=== PATIENT | male | born 1970 | race Asian ===

== ENCOUNTER 2018-08-14 17:48 | Emergency (ER) | payer OTHER, MEDICAID, SELFPAY ==
[2018-08-14 17:53] VITALS: BP 137/82; PULSE 95; RESP 18; TEMP 36.2; O2SAT 99; BMI 23.7
--- NOTE | 2018-08-14 18:23 | ED_ITS ---
HPI - Wound/Laceration <OLIVER Barney - Last Filed: 08/14/18 22:11> General Chief Complaint: Wound/Laceration Stated Complaint: Cut Middle Finger Time Seen by Provider: 08/14/18 17:57 Source: patient Mode of arrival: ambulatory Limitations: no limitations History of Present Illness HPI narrative: 48-year-old male with history of ADHD is a nonsmoker here for complaint of having at laceration to his left index finger. He states that he was using a kitchen knife cut not taking when he accidentally cut his left index finger. This was approximately 1 hr ago. He used Super glue to close the laceration. He denies any other injuries. He states his last tetanus was approximately 2 years ago. Bleeding is controlled at time of exam. He denies any other concerns. Related Data Previous Rx's Medication Instructions Recorded aripiprazole 10 mg tablet 10 mg PO DAILY #90 tab 08/03/18 dextroamphetamine-amphetamine 20 20 mg PO DAILY #30 tab 08/03/18 mg tablet dextroamphetamine-amphetamine ER 40 mg PO DAILY #60 cap 08/03/18 20 mg 24hr capsule,extend release Allergies Allergy/AdvReac Type Severity Reaction Status Date / Time Penicillins Allergy Mild hives Verified 08/14/18 17:56 Review of Systems <OLIVER Barney - Last Filed: 08/14/18 22:11> Constitutional Denies chills, Denies fever(s), Denies lethargy and Denies weakness Eyes Denies change in vision, Denies eye discharge, Denies irritation and Denies loss of vision ENT Ears, Nose, Mouth, and Throat: Denies change in voice, Denies neck pain and Denies sore throat Cardiovascular Denies chest pain, Denies irregular heart rhythm, Denies lightheadedness, Denies palpitations, Denies dyspnea, Denies dyspnea on exertion and Denies orthopnea Respiratory Denies cough, Denies dyspnea, Denies dyspnea on exertion and Denies wheezing Gastrointestinal Gastrointestinal: Denies abdominal pain, Denies change in bowel habits, Denies diarrhea, Denies nausea and Denies vomiting Genitourinary Denies hematuria, Denies flank pain, Denies urinary incontinence and Denies urinary urgency Musculoskeletal Denies neck pain Comments: Laceration left index finger Integumentary/Breasts Denies pruritus, Denies erythema, Denies rash and Denies wounds Neurologic Denies confusion, Denies loss of vision and Denies weakness Psychiatric Denies anxiety, Denies confusion, Denies depression, Denies homicidal ideation and Denies suicidal ideation Endocrine Denies palpitations Hematologic/Lymphatic Denies easy bruising Allergic/Immunologic Denies wheezing Exam <OLIVER Barney - Last Filed: 08/14/18 22:11> Initial Vital Signs Initial Vital Signs: Vital Signs Temperature 97.2 F L 08/14/18 17:53 Pulse Rate 95 H 08/14/18 17:53 Respiratory Rate 18 08/14/18 17:53 Blood Pressure 137/82 08/14/18 17:53 Pulse Oximetry 99 08/14/18 17:53 Const General: cooperative and well developed Nutritional Appearance: well nourished Orientation: alert, awake, oriented x3 and not confused HENMT Mouth: oral mucosae normal and moist mucous membranes Eyes General: appearance normal, both eyes and all related structures Eyelids: eyelids normal Conjunctivae: conjunctivae normal Sclera: sclerae normal Pupils: PERRL EOM: EOM intact bilaterally Resp Effort & Inspection: normal respiratory effort, able to speak in complete sentences, no respiratory distress and no use of accessory muscles Auscultation: clear to auscultation bilaterally, no rales, no rhonchi and no wheezes Cardio Rate: regular rate Rhythm: regular rhythm Heart Sounds: no click, no gallops, no murmurs and no rubs Pulses: normal peripheral pulses Skin General: no rashes or lesions noted, No jaundice and No petechiae Neuro General: alert, oriented x3, gait normal and no focal motor deficits Speech: speech normal Extrem Other: 1 cm laceration to the lateral distal edge of the left index finger. No bleeding at this time. Wound was closed with Super glue prior to arrival. Distal sensation is intact. Distal cap refill less than 2 sec. Full range of motion. <Hannah Banda DO - Last Filed: 08/14/18 23:29> Initial Vital Signs Initial Vital Signs: Vital Signs Temperature 97.2 F L 08/14/18 17:53 Pulse Rate 95 H 08/14/18 17:53 Respiratory Rate 18 08/14/18 17:53 Blood Pressure 137/82 08/14/18 17:53 Pulse Oximetry 99 08/14/18 17:53 Course <OLIVER Barney - Last Filed: 08/14/18 22:11> Vital Signs - 8 hr 08/14/18 17:53 08/14/18 18:45 Temperature 97.2 F L Pulse Rate 95 H 78 Respiratory Rate 18 16 Blood Pressure 137/82 135/91 H Pulse Oximetry 99 100 <Hannah Banda - Last Filed: 08/14/18 23:29> Vital Signs - 8 hr 08/14/18 17:53 08/14/18 18:45 Temperature 97.2 F L Pulse Rate 95 H 78 Respiratory Rate 18 16 Blood Pressure 137/82 135/91 H Pulse Oximetry 99 100 MDM - Wound/Laceration <OLIVER Barney - Last Filed: 08/14/18 22:11> MDM Narrative Medical decision making narrative: Supra glue appears to have closed the wound no bleeding on exam. A patient desires to leave at this time and stick with the Super glue. Offered to suture the wound after cleaning the Super glue off patient decided he would rather not. Informed patient that he is at increased risk of infection due to ceiling in any contaminants. Patient states he understood. Tetanus is up-to-date. Follow up with primary care provider. Over -the-counter Tylenol or Motrin as needed for any discomfort. For any worsening symptoms return to the emergency room. Finger is splinted to give a protection to the incision site. Discharge Plan Departure Patient Disposition: Home Clinical Impression: Laceration of left index finger Discharge Date/Time: 08/14/18 18:45 Interventions: ED Discharge Assessment Last Done: 08/14/18 18:45 Instructions: DI for Minor Laceration Activity Restrictions/Additional Instructions: Due to super glue application wound was not closed with sutures. Wound is at increased risk for infection due to possibility of sealing in contaminants with the Super glue. Finger is splinted to help protect the wound area. Use as directed. Use [id number] Tylenol as needed for discomfort. Follow up with her primary care provider. Return emergency room for any worsening symptoms. Prescriptions: No Action aripiprazole [Abilify] 10 mg tablet 10 mg PO DAILY Qty: 90 RF: 2 dextroamphetamine-amphetamine 20 mg capsule,extended release 24hr 40 mg PO DAILY Qty: 60 RF: 0 dextroamphetamine-amphetamine 20 mg tablet 20 mg PO DAILY Qty: 30 RF: 0 Referrals: [facility], [facility] [Provider Group] <Hannah Banda DO - Last Filed: 08/14/18 23:29> Cosign ED Attending Cosignature Attestation: I was immediately available in the department for consultation. This documentation has been reviewed and I agree with assessment and plan. Supervised by Hannah Banda DO
--- NOTE | 2018-08-14 18:44 | PC.NURSE ---
pt had super glued lac himself before arrival. it remained intact during visit.
[2018-08-14 18:45] VITALS: BP 135/91; PULSE 78; RESP 16; O2SAT 100
== END 2018-08-14 18:45 | disposition home or self-care (01) ==
PROVIDERS: Emergency Provider Nurse Practitioner Family
DX: S61.211A Laceration without foreign body of left index finger without damage to nail, initial encounter (principal); W26.0XXA Contact with knife, initial encounter
CPT/HCPCS: 99282; 99283

== ENCOUNTER → 2019-06-11 08:00 | Outpatient (CLI) | payer OTHER, SELFPAY ==
--- NOTE | 2019-06-11 08:03 | DI.RAD.S_ITS ---
PROCEDURE: FL BARIUM SWALLOW W SPEECH INDICATIONS: New suprasternal notch dysphagia with weight loss. Additional history: Smoking history and recent cough. TECHNIQUE: Examination was conducted in conjunction with speech pathology per standard protocol. In the lateral projection, filming was performed of the patient swallowing. AP projection filming may also be performed with patient swallowing. COMPARISON: None. FINDINGS: Function: The oral preparatory phase appears normal, with proper containment. The subsequent oral propulsive phase is normal. Abnormal vallecular pooling. The epiglottis demonstrates an abnormal horizontal inversion especially with thicker and solid food preparations. Possible intermittent laryngotracheal penetration. No aspiration. Persistent periform sinus pooling. Morphology: Abnormal horizontal inversion of the epiglottis. No cricopharyngeal bar is identified. No cervical esophageal webs. No Zenker's diverticulum. No strictures. IMPRESSION: Inversion of the epiglottis with abnormal vallecular and periform sinus pooling. Possible laryngotracheal penetration without aspiration. Please see separately performed report by the speech pathologist. Exam findings were reviewed with the patient. Dictated by: Donell Barrera M.D. on 06/11/2019 at 8:58 Approved by: Donell Barrera M.D. on 06/11/2019 at 9:06
--- NOTE | 2019-06-11 15:50 | ST.SWALLOW ---
Visit Care Team Role Provider Type Piedad Baez MD Primary Care Provider Physician Specialty: Family Practice Address: [address] [place] [address], [facility], [place], [address] Email: [email or web address] Corby Pena MD Attending Provider Physician Specialty: Family Practice Address: [address] [place] [address], [place], [address] Email: Modified Barium Swallow Study SCIENTIFIC RECRUITER Modified Barium Swallow Study Start: 06/11/19 13:28 Freq: Status: Active Protocol: Document 06/11/19 13:28 TLC (Rec: 06/11/19 13:33 TLC [id number]) Modified Barium Swallow Study Total Time Visit Start Time 08:30 Visit Stop Time 09:00 Total Visit Minutes [address] Corby Pena Reason for Referral Dysphagia Setting Setting Outpatient Care Patient Information Identification Type Name Patient History Patient is a 49 year old male with complaints of food getting stuck and difficulty swallowing which began approximately 3 months ago. He says this happens mostly with solid foods such as meats and breads and usually has to regurgitate the food as strategies do not help the food go down. He has had a 5 lb weight loss in the last month and 10 lb in last 4 months. He is a current smoker and his mother has a history of thyroid cancer. He denies abdominal pain, nausea, reflux . Subjective Observations Patient was alert, oriented and cooperative during the evaluation. Patient Positioning Position View Lateral Imaging Lateral View Textures Administered Trials Presented Thin Liquid via Spoon,Thin Liquid via Cup,Warden Liquid via Spoon,Warden Liquid via Cup,Honey Liquid via Spoon, Dysphagia Blenderized Textures ,Regular Textures Oral Phase Source: MBSIMP (TM) (C) Bolus Specific Scoring Grid Lip Closure No Impairment (WNL) Tongue Control During Bolus Hold No Impairment (WNL) Bolus Prep/Mastication No Impairment (WNL) Bolus Transport/Lingual Motion No Impairment (WNL) Oral Residue No Impairment (WNL) Additional Oral Phase Observations No impairment in the oral phase of swallowing observed during the study. Pharyngeal Phase Source: MBSIMP (TM) (C) Bolus Specific Scoring Grid Delayed Initiation of Pharyngeal Swallow No Soft Palate Elevation No Impairment (WNL) Laryngeal Elevation Mild Impairment Anterior Hyoid Movement No Impairment (WNL) Epiglottic Range of Motion Mild Impairment Vallecular Residue Yes Laryngeal Vestibular Closure Mild Impairment Posterior Pharyngeal Wall Residue Yes Upper Esophageal Sphincter Opening Moderate Impairment Additional Pharyngeal Phase Observations The epiglottis observed to invert only partially, resulting in vallecular residue after all swallows, worse with more solid textures . Anterior hyoid excursion appeared complete; however, laryngeal elevation and laryngeal vestibular closure were incomplete. Tsp amount of puree textures was observed to penetrate into the laryngeal vestibule, but was not aspirated. No aspiration was observed during the study. Distension of the pharyngoesophageal segment was complete; however, duration of opening was partial resulting in pyriform sinus residue, again which was worse with more solid textures. A collection of residue was noted in the valleculae and pyriform sinuses with all swallows and trials of chin tuck and effortful swallow were minimally successful at clearing residue. Trace residue was also observed on the tongue base, pharyngeal wall, and aryepiglottic folds. A/P View Clinical Impressions Dysphagia Type Pharyngeal Findings Moderate pharyngeal dysphagia significant for a collection of residue in the valleculae ad pyriform sinuses with all bites/sips which did not fully clear with implementation of compensatory strategies. Recommend outpatient speech therapy for exercises to improve the impaired physiological components of swallowing including: laryngeal elevation, epiglottic movement, laryngeal vestibular closure, and PES opening. Exercises recommended include: effortful swallow, ha maneuver, tongue pullback, and shaker/CTAR. Also, patient would benefit from further education/ training in compensatory strategies such as small bites /sips, alternating liquids/ solids and use of double swallow to minimize choking risk. Rehabilitation Potential Good Patient Appropriate for Therapy Yes Recommendations Diet Liquids Order Thin Diet Order Mechanical Soft Medication Recommendation As Tolerated Aspiration Precautions Recommended Precautions Upright at 90 Degrees, Alternate Liquids/Solids,Small Bites/Sips,Effortful Swallow, Double Swallow Treatment Plan Therapy Recommendations Outpatient Speech Therapy
== END ==
PROVIDERS: PCP Family Medicine; Visit Provider Family Medicine
DX: R13.10 Dysphagia, unspecified (principal); R05 Cough; R63.4 Abnormal weight loss; Z87.891 Personal history of nicotine dependence
CPT/HCPCS: 74230; 92611

== ENCOUNTER → 2019-08-11 10:59 | Outpatient (CLI) | payer OTHER, SELFPAY ==
--- NOTE | 2019-08-11 11:03 | DI.RAD.S_ITS ---
PROCEDURE: XR ELBOW LT MIN 3V INDICATIONS: pain to lateral epicondyle, dec rom, r/o bony abnormality TECHNIQUE: 3 views of the elbow were acquired. COMPARISON: None. FINDINGS: Bones: No fractures or dislocations. No suspicious bony lesions. Soft tissues: No elbow joint effusion. No suspicious soft tissue calcifications. IMPRESSION: No evidence acute bony abnormality of the left elbow Dictated by: Hang Wagner M.D. on 08/11/2019 at 11:33 Approved by: Hang Wagner M.D. on 08/11/2019 at 11:34
== END ==
PROVIDERS: Family Provider Family Medicine; PCP Family Medicine; Visit Provider Physician Assistant
DX: S46.912A Strain of unspecified muscle, fascia and tendon at shoulder and upper arm level, left arm, initial encounter (principal)
CPT/HCPCS: 73080